=== PATIENT | female | born 1980 | race Caucasian/White ===

== ENCOUNTER 2018-05-07 13:36 | Emergency (ER) | payer MEDICAID ==
[~2018-05-07] VITALS: Ht 172.7 cm; Wt 90.7 kg
[2018-05-07 14:15] LABS: Basophils # (auto) 0.1 uL; Eosinophils # (auto) 0 uL; Lymphocytes # (auto) 2.2 uL; Monocytes # (auto) 0.4 uL; White Blood Cell 5.1 10^3/uL (4.4-10.8)
[2018-05-07 14:18] LABS: Basophils % (auto) 1.4 % (0.0-2.0); Eosinophils % (auto) 0.3 % (0.0-7.0); Hematocrit 46.3 % (36.0-46.0); Lymphocytes % (auto) 42.5 % (10.0-50.0); Mean Corpuscular Hemoglobin 38.6 pg (28.0-32.0); Mean Corpuscular Hgb Conc. 34.5 g/dL (32.0-36.0); Neutrophils # (auto) 2.5 uL; Neutrophils % (auto) 48.8 % (37.0-80.0); Platelet Count (auto) 266 10^3/uL (140-450); Red Blood Cells 4.13 10^6/uL (4.0-5.20)
[2018-05-07 14:31] LABS: Albumin 3.7 g/dL (3.4-5.0); Anion Gap 11 (5-15); Blood Urea Nitrogen 5 mg/dL (7-18); Calcium 8.3 mg/dL (8.5-10.1); Carbon Dioxide 25 mmol/L (21-32); Chloride 104 mmol/L (98-107); Glucose 86 mg/dL (74-106); Magnesium 2.1 mg/dL (1.6-2.6); Potassium 3.7 mmol/L (3.5-5.1); Sodium 140 mmol/L (136-145)
[2018-05-07 14:34] LABS: Alanine Aminotransferase 169 U/L (13-56); Aspartate Aminotransferase 381 U/L (15-37); BUN/Creatinine Ratio 5.7; GFR African American 94 mL/min; GFR Non-African American 78 mL/min
[2018-05-07 14:50] LABS: Alkaline Phosphatase 118 U/L (45-117); Bilirubin, Total 1.2 mg/dL (0.2-1.0); Total Protein 7.9 g/dL (6.4-8.2)
[2018-05-07 14:55] LABS: Urine Bacteria NONE SEEN /hpf (None Seen); Urine Blood Negative /uL (Negative); Urine Mucus FEW (None Seen); Urine Specific Gravity 1.032 (1.001-1.035); Urine WBC 2 /hpf (0 - 5)
[2018-05-07] MEDS ORDERED: KETOROLAC TROMETH 30 MG/ML 1ML VIAL IV ONE (16:45)
[2018-05-07] MEDS ORDERED: METOCLOPRAMIDE HCL 5MG/ml INJ 2ml VIAL IV ONE (16:45)
[2018-05-07 17:12] VITALS: BP 144/69
== END 2018-05-07 18:01 | disposition home or self-care (01) ==
LOC: ER 13:36
DX: R07.89 Other chest pain (principal); F10.10 Alcohol abuse, uncomplicated; K82.4 Cholesterolosis of gallbladder; R74.8 Abnormal levels of other serum enzymes; Z88.0 Allergy status to penicillin
CPT/HCPCS: 36415; 71046; 76705; 80053; 81001; 83735; 84484; 84702; 85025; 93005; 96374; 96375; 99285; J1885; J2765